=== PATIENT | male | born 1975 | race Caucasian/White ===

== ENCOUNTER 2019-05-26 09:59 | Emergency (ER) | payer OTHER ==
[2019-05-26] MEDS ORDERED: Sodium Chloride 0.9% 1,000 ML IV ONE (10:03)
[2019-05-26] MEDS ORDERED: methylPREDNISolone Sodium Succinate 125 MG/2 ML SDV IVPUSH ONE (10:03)
[2019-05-26] MEDS ORDERED: EPINEPHrine 1 MG/ML SDV IM ONE (10:03)
[2019-05-26] MEDS ORDERED: Sodium Chloride 0.9% 2.5 ML Syringe FLUSH PRN (10:03)
[2019-05-26] MEDS ORDERED: diphenhydrAMINE 50 MG/ML SDV IVPUSH ONE (10:03)
[2019-05-26] MEDS ORDERED: Sodium Chloride 0.9% 10 ML Syringe FLUSH PRN (10:03)
[2019-05-26] MEDS ORDERED: Famotidine 20 MG/2 ML SDV IVPUSH ONE (10:03)
--- NOTE | 2019-05-26 10:43 | EDM.PDOC ---
ED HPI GENERAL MEDICAL PROBLEM - General Chief Complaint: Allergic Reaction Stated Complaint: ALLERGIC REACTION Time Seen by Provider: 05/26/19 10:02 Source of Information: Reports: Patient History Limitations: Reports: No Limitations - History of Present Illness INITIAL COMMENTS - FREE TEXT/NARRATIVE: History of present illness: []Patient has had a week of hives and itching. This morning he started feeling his throat swelling. He Has Been using Benadryl at home with intermittent relief. At one point he thought he may be allergic jalapenos but is unsure at this time. Patient feels like he is having difficulty swallowing and breathing. Review of systems: As per history of present illness and below otherwise all systems reviewed and negative. Past medical history: As per history of present illness and as reviewed below otherwise noncontributory. Surgical history: As per history of present illness and as reviewed below otherwise noncontributory. Social history: No reported history of drug or alcohol abuse. Family history: As per history of present illness and as reviewed below otherwise noncontributory. Physical exam: General: Well developed, well nourished in NAD HEENT: Atraumatic, normocephalic, pupils reactive, negative for conjunctival pallor or scleral icterus, mucous membranes moist, throat clear, no edema neck supple, nontender, trachea midline. no Stridor Lungs: Clear to auscultation, no wheezing or chest wall retractions breath sounds equal bilaterally, chest nontender. Heart: S1S2, regular, negative for clicks, rubs, or JVD. Abdomen: NABS, Soft, nondistended, nontender. Negative for masses or hepatosplenomegaly. Negative for costovertebral tenderness. Pelvis: Stable nontender. Genitourinary: Deferred. Rectal: Deferred. Extremities: Atraumatic, negative for cords or calf pain. Neurovascular unremarkable. Neuro: Awake, alert, oriented. Cranial nerves II through XII unremarkable. Cerebellum unremarkable. Motor and sensory unremarkable throughout. Exam nonfocal. Skin: Positive large urticarial lesions on his back warm and dry Diagnostics: CMP (requested by patient)-neg Therapeutics: IV hydration, Benadryl, epinephrine, Pepcid, Solu-Medrol ED Course: Stable Impression: Allergic reaction Prescriptions: medrol Dose pack Plan: follow up with PMD, benadryl for allergic reaction, itching Definitive disposition and diagnosis as appropriate pending reevaluation and review of above. generalized itchy Pain Score (Numeric/FACES): 3 - Related Data Allergies Allergy/AdvReac Type Severity Reaction Status Date / Time No Known Allergies Allergy Verified 05/26/19 10:16 Home Meds: Home Meds methylPREDNISolone [Medrol] 4 mg PO ASDIRECTED #1 dosepk 05/26/19 [Rx] Past Medical History - Past Health History Medical/Surgical History: Denies Medical/Surgical History HEENT History: Reports: None Cardiovascular History: Reports: None - Infectious Disease History Infectious Disease History: Reports: None Social & Family History - Family History Family Medical History: Noncontributory - Caffeine Use Caffeine Use: Reports: Coffee, Energy Drinks - Recreational Drug Use Recreational Drug Use: No ED ROS ALLERGIC REACTION - Review of Systems Review Of Systems: See Below ED EXAM GENERAL NO PERIP PULSE - Physical Exam Exam: See Below Course - Vital Signs Last Recorded V/S: Last Vital Signs Temp 97.2 F 05/26/19 10:12 Pulse 73 05/26/19 10:12 Resp 18 05/26/19 10:12 BP 139/93 H 05/26/19 10:12 Pulse Ox 97 05/26/19 10:12 - Orders/Labs/Meds Orders: Active Orders 24 hr Category Date Time Status Sodium Chloride 0.9% [Saline Flush] Med 05/26/19 10:03 Active 10 ml FLUSH ASDIRECTED PRN Sodium Chloride 0.9% [Saline Flush] Med 05/26/19 10:03 Active 2.5 ml FLUSH ASDIRECTED PRN Saline Lock Insert [OM.PC] Stat Oth 05/26/19 10:03 Ordered Saline Lock Insert [OM.PC] Stat Ot 05/26/19 10:03 Ordered Medication Orders Sodium Chloride (Saline Flush) 10 ml FLUSH ASDIRECTED PRN PRN Reason: Keep Vein Open Last Admin: 05/26/19 10:14 Dose: 10 ml Sodium Chloride (Saline Flush) 2.5 ml FLUSH ASDIRECTED PRN PRN Reason: Keep Vein Open Last Admin: 05/26/19 10:14 Dose: 2.5 ml Labs: Laboratory Tests 05/26/19 Range/Units 10:30 Sodium 141 (136-148) mmol/L Potassium 4.6 (3.5-5.1) mmol/L Chloride 105 (98-107) mmol/L Carbon Dioxide 26.7 (21.0-32.0) mmol/L BUN 17 (7.0-18.0) mg/dL Creatinine 0.9 (0.8-1.3) mg/dL Est Cr Clr Drug Dosing 117.36 mL/min Estimated GFR (MDRD) > 60.0 ml/min Glucose 117 H (74-106) mg/dL Calcium 8.6 (8.5-10.1) mg/dL Total Bilirubin 0.6 (0.2-1.0) mg/dL AST 15 (15-37) IU/L ALT 31 (14-63) IU/L Alkaline Phosphatase 88 (46-116) U/L Total Protein 6.8 (6.4-8.2) g/dL Albumin 3.6 (3.4-5.0) g/dL Globulin 3.2 (2.6-4.0) g/dL Albumin/Globulin Ratio 1.1 (0.9-1.6) Meds: Medications Generic Name Dose Route Start Last Admin Trade Name Freq PRN Reason Stop Dose Admin Sodium Chloride 10 ml 05/26/19 10:03 05/26/19 10:14 Saline Flush FLUSH 10 ml ASDIRECTED PRN Administration Keep Vein Open Sodium Chloride 2.5 ml 05/26/19 10:03 05/26/19 10:14 Saline Flush FLUSH 2.5 ml ASDIRECTED PRN Administration Keep Vein Open Discontinued Medications Generic Name Dose Route Start Last Admin Trade Name Freq PRN Reason Stop Dose Admin Diphenhydramine HCl 50 mg 05/26/19 10:03 05/26/19 10:13 Benadryl IVPUSH 05/26/19 10:04 50 mg ONETIME ONE Administration Epinephrine HCl 0.5 mg 05/26/19 10:05/26/19 10:13 Adrenalin IM 05/26/19 10:04 0.5 mg ONETIME ONE Administration Famotidine 20 mg 05/26/19 10:03 05/26/19 10:13 Pepcid IVPUSH 05/26/19 10:04 20 mg ONETIME ONE Administration Sodium Chloride 1,000 mls @ 999 mls/hr 05/26/19 10:03 05/26/19 10:13 Normal Saline IV 05/26/19 11:03 999 mls/hr .Bolus ONE Administration Methylprednisolone Sodium Succinate 125 mg 05/26/19 10:03 05/26/19 10:13 Solu-Medrol IVPUSH 05/26/19 10:04 125 mg ONETIME ONE Administration Departure - Departure Time of Disposition: 11:23 Disposition: Home, Self-Care 01 Condition: Good Clinical Impression: Allergic reaction Qualifiers: Encounter type: initial encounter Qualified Code(s): T78.40XA - Allergy, unspecified, initial encounter - Discharge Information *PRESCRIPTION DRUG MONITORING PROGRAM REVIEWED*: No *COPY OF PRESCRIPTION DRUG MONITORING REPORT IN PATIENT ALPHONSE: No Prescriptions: methylPREDNISolone [Medrol] 4 mg PO ASDIRECTED #1 dosepk Referrals: PCP,Unknown [Primary Care Provider] - Additional Instructions: follow up with queenie MELGOZA for itching, medrol dose pack as directed - My Orders Last 24 Hours: My Active Orders 05/26/19 10:03 Sodium Chloride 0.9% [Saline Flush] 10 ml FLUSH ASDIRECTED PRN Sodium Chloride 0.9% [Saline Flush] 2.5 ml FLUSH ASDIRECTED PRN Saline Lock Insert [OM.PC] Stat Saline Lock Insert [OM.PC] Stat - Assessment/Plan Last 24 Hours: My Active Orders 05/26/19 10:03 Sodium Chloride 0.9% [Saline Flush] 10 ml FLUSH ASDIRECTED PRN Sodium Chloride 0.9% [Saline Flush] 2.5 ml FLUSH ASDIRECTED PRN Saline Lock Insert [OM.PC] Stat Saline Lock Insert [OM.PC] Stat
[2019-05-26 11:11] LABS: BLOOD UREA NITROGEN,BUN 17 mg/dL (7.0-18.0); CARBON DIOXIDE,CO2 26.7 mmol/L (21.0-32.0); CHLORIDE,CL 105 mmol/L (98-107); GLUCOSE RANDOM 117 mg/dL (74-106); POTASSIUM,K 4.6 mmol/L (3.5-5.1); SODIUM,NA 141 mmol/L (136-148)
== END 2019-05-26 11:38 | disposition home or self-care (01) ==
LOC: MW.ED 09:59
DX: L50.0 Allergic urticaria (principal)
CPT/HCPCS: 36415; 80053; 96361; 96372; 96374; 96375; 99283; J0171; J1200; J2930; J7040; S0028; J3490

== ENCOUNTER 2024-10-24 19:26 | Emergency (ER) | payer OTHER ==
[2024-10-24] MEDS: Ciprofloxacin 0.3% Ophth Soln 2.5 ML Bottle EYEBOTH STA (20:53)
== END 2024-10-24 20:57 | disposition home or self-care (01) ==
LOC: MW.ED 19:26
DX: H10.89 Other conjunctivitis (principal); B96.89 Other specified bacterial agents as the cause of diseases classified elsewhere; Z75.8 Other problems related to medical facilities and other health care
CPT/HCPCS: 99283; A9270